=== PATIENT | female | born 1990 | race Caucasian/White ===

== ENCOUNTER 2017-05-23 00:39 | Inpatient (IN) | payer SELFPAY ==
[2017-05-22 22:27] VITALS: BMI 33.9
[2017-05-23] MEDS: Lactated Ringers 1,000 ML 50 ML IV ×3 (01:00→05:58)
[2017-05-23 01:13] LABS: Hematocrit 32.4 % (37-47); Mean Corpuscular Hgb 29.1 pg (27.0-32.0); Mean Corpuscular Volume 85.7 fL (81-99); Mean Platelet Vol. 9.6 fl (6.2-12.0); Platelet Count 230 K/mm3 (150-450); RBC Distribution Width CV 13.7 % (11.6-14.6); RBC Distribution Width SD 41.9 fl (35.1-43.9); Red Blood Count 3.78 M/mm3 (4.2-5.4); White Blood Count 11.9 K/mm3 (4.4-11.0)
[2017-05-23 01:15] LABS: Scan Indicated on CBC? Y/N NO
--- NOTE | 2017-05-23 02:20 | PCM.PN.BLA ---
Progress Note LABOR PROGRESS NOTE Declines AROM Sitting up in rocking chair NAD AVSS Off monitor A/P; 40 2/7 wk h/o long labor prior. GBS positive. ABX started for GBS prophylaxis Declines AROM for now. Continue monitor labor.
[2017-05-23] MEDS: Oxytocin 30 units/NS 500 ml 30 UNITS/500 ML IV.SOLN IV (04:35)
--- NOTE | 2017-05-23 07:57 | PCM.PN.BLA ---
Progress Note LABOR PROGRESS NOTE Comfortable w/ epidural AVSS Pitocin at 8 mIU/min EFM 120-130s with accels to 150-170s occasional variable UC q 2-4 min CX: 4 cm (as RN last note) 50/-3 but vtx well applied to cervix. AROM mod clear fluid A/P: 40 2/7 wk early labor with UCs. H/o 20 hr labor prior Pitocin started after epidural per pt request. Slow but continued progress. AROM Consider IUPC to better define adequacy of UCs by mVUs. continue labor.
[2017-05-23] MEDS: Oxytocin 30 units/NS 500 ml 30 UNITS/500 ML IV.SOLN 334 UNITS IV (10:55)
[2017-05-23] MEDS: Oxytocin 30 units/NS 500 ml 30 UNITS/500 ML IV.SOLN 167 UNITS IV (11:25)
[2017-05-23] MEDS: Lactated Ringers 1,000 ML 15 ML IV (12:25)
[2017-05-23 15:14] VITALS: BP 112/72; PULSE 76; RESP 18; TEMP 37.3; O2SAT 97
--- NOTE | 2017-05-23 17:00 | PCM.OB.VAG ---
- Problem List (1) (spontaneous vaginal delivery) Status: Acute Vaginal Delivery Maternal Presentation: - - Latent labor Method of Induction: - - Pitocin and amniotomy for augmentation Rupture of Membrane time: 0754 05/23/17 Amniotic Fluid Description: Clear Final ELSIE: 05/21/17 Final ELSIE Source: US <20 weeks Gestational age: 40 Weeks and 2 Days Date of Procedure: 05/23/17 Pre-Operative Diagnosis: 40 2/7wga, labor Post-Operative Diagnosis: 40 2/7wga, labor Surgery/ Procedure Performed: Spontaneous Vaginal Delivery Type of Anesthesia: Epidural Description of Procedure: FD/+3 and pushed to deliver a vigorous male in direct OA. The infant was placed on the maternal abdomen and further attended by nursery personnel. The cord was doubly clamped and cut at approximately 3 minutes of life. Cord blood was obtained. The placenta delivered spontaneously and appeared intact on inspection. An intrauterine exam was performed with few small clots extracted. The fundus was firm. A first degree perineal laceration was repaired with 3-0 Vicryl Rapide with excellent hemostasis. Presentation: Vertex Placental Delivery Description: Spontaneous Placenta Disposition: [facility] Cord Vessel Description: 3 Vessels Nuchal Cord Compression: Without compression Cord Entanglement: None Estimated Blood Loss: 200 Infant A gender: Male (1 minute): 8 (5 minute): 9 Episiotomy Description: None Laceration: Midline, Perineal Extension/lac, 1st degree Medications given after delivery: IV Pitocin Complications: None
[2017-05-23 17:16] VITALS: BP 116/75; PULSE 79; RESP 16; TEMP 36.8; O2SAT 96
[2017-05-23 19:40] VITALS: BP 108/65; PULSE 84; RESP 16; TEMP 37.1
[2017-05-23 23:34] VITALS: BP 111/71; PULSE 74; RESP 16; TEMP 36.8
[2017-05-24] MEDS: Ibuprofen 600 MG Tablet PO ×4 (01:14→22:46)
[2017-05-24 04:25] VITALS: BP 108/58; PULSE 68; RESP 16; TEMP 36.6
[2017-05-24] MEDS: Levothyroxine 150 MCG Tablet PO (05:33)
[2017-05-24 08:10] VITALS: BP 115/68; PULSE 84; RESP 16; TEMP 36.6; O2SAT 96
--- NOTE | 2017-05-24 08:36 | PCM.PN.OB ---
Subjective: PPD#1 Doing well. Bottle feeding. Considering going home today later in pm. Male and planned circumcision. OK with staying until tomorrow if baby is not released until late Bleeding about as a period. Pain control adequate. - Physical Exam General: Alert, Oriented x3, Cooperative, No apparent distress HEENT: Atraumatic Neck: Supple Abdomen: Soft - Fundus firm NT at 2 cm inferior to umbilicus Neurological: Cranial nerves II-XII grossly intact Psych/Mental Status: Normal Affect Vital Signs Temp Pulse Resp BP Pulse Ox 97.9 F 84 16 115/68 96 05/24/17 08:10 05/24/17 08:10 05/24/17 08:10 05/24/17 08:10 05/24/17 08:10 Oxygen Delivery Method Room Air Weight: 90.2 kg Body Mass Index (BMI) 33.9 Intake and Output for Last 24 Hours 05/22/17 05/23/17 05/24/17 23:59 23:59 23:59 Intake Total 3725 / 3725 Output Total 3700 / 3700 Balance 25 / 25 Laboratory Tests Past 24 Hrs 05/23/17 13:55 Screen NEGATIVE Baby's Blood Type A POSITIVE Baby's LEVAR NEGATIVE Assessment/Plan PPD#1 Doing well. Possible dischg home today if baby is released, otherwise hold dischg until tomorrow. Continue care.
[2017-05-24] MEDS: Prenatal Vits Tablet 1 TABLET PO (12:30)
[2017-05-24 14:10] VITALS: BP 104/53; PULSE 78; RESP 18; TEMP 36.7; O2SAT 94
[2017-05-24 20:15] VITALS: BP 119/70; PULSE 72; RESP 18; TEMP 36.5; O2SAT 98
[2017-05-25 03:30] VITALS: BP 127/75; PULSE 69; RESP 18; TEMP 36.2; O2SAT 97
[2017-05-25] MEDS: Levothyroxine 150 MCG Tablet PO (06:28)
[2017-05-25] MEDS: Ibuprofen 600 MG Tablet PO (06:31)
[2017-05-25 07:46] VITALS: BP 110/66; PULSE 58; RESP 18; TEMP 37.1; O2SAT 96
--- NOTE | 2017-05-25 08:51 | PCM.PN.OB ---
Subjective: No complaints. Denies heavy lochia. No issue overnight. She looks forward to going home. Objective: AVSS - Physical Exam General: Alert, Oriented x3, Cooperative, No apparent distress HEENT: Atraumatic, Normocephalic Lungs: Clear to auscultation, Normal air movement Cardiovascular: Regular rate, Regular Rhythm Abdomen: Soft, Non Tender, Non-Distended, - - Fundus firm and nontender Extremities: No edema, No Calf Tenderness Neurological: Neuro grossly intact Psych/Mental Status: Normal Affect, Appropriate, Alert and oriented to time, place, person, mood and affect Vital Signs Temp Pulse Resp BP Pulse Ox 98.7 F 58 L 18 110/66 96 05/25/17 07:46 05/25/17 07:46 05/25/17 07:46 05/25/17 07:46 05/25/17 07:46 Oxygen Delivery Method Room Air Weight: 90.2 kg Body Mass Index (BMI) 33.9 Intake and Output for Last 24 Hours 05/23/17 05/24/17 05/25/17 23:59 23:59 23:59 Intake Total 3725 / 3725 Output Total 3700 / 3700 Balance Assessment/Plan 27yo PPD#2 s/p doing well. -A negative - A positive, pt s/p Rhogam -Rubella immune -Bottlefeeding -d/c home todday
--- NOTE | 2017-05-25 08:57 | DCINST_ITS ---
Discharge Diet: No Restrictions Discharge Activity: Return to Normal Activity, May Shower, May Take a Tub Bath May resume sexual activity in: 6 weeks Lifting Restrictions: 20 lb Call your doctor if your incision/area has: Continuous Slow Oozing, Sudden Increased Bleeding, Increased Pain/ Swelling, Increased Redness, Foul Smelling Discharge Call your doctor if you observe: Inability to urinate, Inability to have a bowel movement, Using more than one pad per hour, Shortness of breath, Chest pain, Calf discomfort, Uncontrolled pain Suture Line Care: Avoid Pulling/Pushing Cleanse incision/area with: Soap & Water Instructions: After a Vaginal Additional Instructions: If you experience any of the following, contact your healthcare provider. * Bleeding that soaks a pad every hour for 2 hours * Fever 100.4 or higher * Unrelieved incision or abdominal pain * Swelling, redness, discharge or bleeding from your incision or episiotomy site * Your incision begins to separate * Problems urinating (including inability to urinate or burning while urinating) . * Visual changes * Severe headache * Flu-like symptoms * Pain or redness in one of both of your breasts * Pain, warmth, tenderness or swelling in your legs, especially the calf area * Frequent nausea and vomiting * Symptoms of depression or anxiety If you experience any of the following, call 911 or go to the nearest Emergency Room. * Chest pain * Problems breathing * Seizure activity * Partial or complete paralysis of a body part, slurred speech, weakness or drooping of the face, or a sudden inability to walk or hold your balance Allergies/Adverse Reactions: Allergies acyclovir Allergy (Verified 11/06/14 21:53) Rash Medications to take at Discharge Vits [Prenatabs FA ] 1 tablet PO DAILY 03/06/17 Levothyroxine [Synthroid] 150 mcg PO DAILY 05/22/17 Ibuprofen 800 mg PO TID PRN #30 tab 05/25/17 Senna/Docusate Sodium [Senokot-S] 1 - 2 tablet PO DAILY PRN PRN tablet The following prescriptions were given: Ibuprofen 800 mg PO TID PRN #30 tab PRN Reason: Pain Please Follow Up With: Za Nino MD When: 6 weeks Primary Care Physician: Paulo Jackson MD [Primary Care Provider] -
--- NOTE | 2017-05-25 09:01 | OP.PCM_ITS ---
- Problem List (1) (spontaneous vaginal delivery) Status: Acute Vaginal Delivery Maternal Presentation: - - Latent labor Method of Induction: - - Pitocin and amniotomy for augmentation Rupture of Membrane time: 0754 05/23/17 Amniotic Fluid Description: Clear Final ELSIE: 05/21/17 Final ELSIE Source: US <20 weeks Gestational age: 40 Weeks and 2 Days Date of Procedure: 05/23/17 Pre-Operative Diagnosis: 40 2/7wga, labor Post-Operative Diagnosis: 40 2/7wga, labor Surgery/ Procedure Performed: Spontaneous Vaginal Delivery Type of Anesthesia: Epidural Description of Procedure: FD/+3 and pushed to deliver a vigorous male in direct OA. The infant was placed on the maternal abdomen and further attended by nursery personnel. The cord was doubly clamped and cut at approximately 3 minutes of life. Cord blood was obtained. The placenta delivered spontaneously and appeared intact on inspection. An intrauterine exam was performed with few small clots extracted. The fundus was firm. A first degree perineal laceration was repaired with 3- 0 Vicryl Rapide with excellent hemostasis. Presentation: Vertex Placental Delivery Description: Spontaneous Placenta Disposition: [facility] Cord Vessel Description: 3 Vessels Nuchal Cord Compression: Without compression Cord Entanglement: None Estimated Blood Loss: 200 A gender: Male (1 minute): 8 (5 minute): 9 Episiotomy Description: None Laceration: Midline, Perineal Extension/lac, 1st degree Medications given after delivery: IV Pitocin Complications: None
== END 2017-05-25 09:45 | disposition home or self-care (01) | DRG 775 ==
LOC: WPOUT 00:43
PROVIDERS: Obstetrics & Gynecology; Admitting Provider Obstetrics & Gynecology; Family Provider Family Medicine; PCP Family Medicine; Visit Provider Obstetrics & Gynecology
DX: O99.824 Streptococcus B carrier state complicating childbirth (principal); O70.0 First degree perineal laceration during delivery; Z87.59 Personal history of other complications of pregnancy, childbirth and the puerperium; Z37.0 Single live birth; Z3A.40 40 weeks gestation of pregnancy
CPT/HCPCS: 59025; 59050; 85027; 85461; 86850; 86900; 90384; 99218; J7120; G0378; J2790

== ENCOUNTER → 2018-09-19 11:25 | Outpatient (CLI) | payer OTHER, SELFPAY ==
[2017-05-22 22:27] VITALS: BMI 33.9
[2018-09-23 13:39] LABS: HPV Reflexed? NOT INDICATED
== END ==
PROVIDERS: Visit Provider Obstetrics & Gynecology
DX: Z12.4 Encounter for screening for malignant neoplasm of cervix (principal)
CPT/HCPCS: 88175; G0145

== ENCOUNTER → 2019-08-06 | Outpatient (CLI) | payer OTHER, SELFPAY ==
[2017-05-22 22:27] VITALS: BMI 33.9
[2019-08-06 18:05] LABS: Color, Urine Yellow (Yellow); Glucose, Dipstick Normal (Normal); Ketone-Dipstick Negative (Negative); Leukocyte Esterase-Dipstick 25 /ul (Negative); Nitrite-Dipstick Negative (Negative); Occult Blood-Urine Negative /ul (Negative); Protein-Dipstick Negative (Negative); Specific Gravity, Urine 1.005 (1.002-1.030); Urine Bilirubin Dipstick Negative (Negative); Urine Clarity Clear (Clear); Urine Urobilinogen Normal (Normal)
[2019-08-06 18:09] LABS: Absolute Lymphocyte Count 1.34 X10^3/uL (0.83-4.51); Absolute Neutrophil Count 6.1 X10^3/uL (2.0-7.7); Basophil# 0.03 X10^3/uL; Basophil% 0.4 % (0-1); Eosinophil# 0.03 X10^3/uL; Eosinophils% 0.4 % (0-5); Hematocrit 35.3 % (37-47); Hemoglobin 11.6 g/dL (12.0-15.0); Lymphocyte # 1.34 X10^3/ul (4.0); Lymphocyte % 16.8 % (19-41); Mean Corp Hgb Conc 32.9 g/dL (32-36); Mean Corpuscular Hgb 29.2 pg (27.0-32.0); Mean Corpuscular Volume 88.9 fL (81-99); Mean Platelet Vol. 9.9 fl (6.2-12.0); Monocyte# 0.44 X10^3/uL; Monocyte% 5.5 % (0-10); NRBC Flagged by Analyzer 0 % (0-5); Neutrophil % 76.4 % (47-70); Platelet Count 261 K/mm3 (150-450); RBC Distribution Width CV 13.8 % (11.6-14.6); Red Blood Count 3.97 M/mm3 (4.2-5.4)
[2019-08-06 18:23] LABS: Amphetamine Urine VISTA NEGATIVE (<1000 ng/mL); Barbiturate Urine VISTA NEGATIVE (< 200 ng/mL); Benzodiazepine Urine VISTA NEGATIVE (< 200 ng/mL); Cocaine Urine VISTA NEGATIVE (< 300 ng/mL); Ecstacy Urine VISTA NEGATIVE (< 500 ng/mL); Methadone Urine VISTA NEGATIVE (< 300 ng/mL); PCP Urine VISTA NEGATIVE (< 25 ng/mL); THC Urine VISTA NEGATIVE (< 50 ng/mL); Vista UDS pH Range 7
[2019-08-06 18:25] LABS: Thyroid Stim Hormone (TSH) 0.56 uIU/mL (0.358-3.74)
[2019-08-06 20:35] LABS: Chlamydia Trachomatis by PCR Negative (Negative); Neisserai gonorrhoeae by PCR Negative (Negative); Probe Check PASS; Sample Adequacy Control PASS; Specimen Processing Control PASS
[2019-08-07 08:38] LABS: HIV - WCH Non-Reactive (Nonreactive); Hepatitis B Surface Antigen Non-Reactive (Nonreactive); Hepatitis C Antibody Non-Reactive (Nonreactive); Rubella IgG 171.2 IU/mL
[2019-08-07 23:59] LABS: Prenatal RPR NONREACTIVE (NONREACTIVE)
== END | disposition home or self-care (01) ==
PROVIDERS: Referring Provider Obstetrics & Gynecology; Visit Provider Obstetrics & Gynecology
DX: Z34.82 Encounter for supervision of other normal pregnancy, second trimester (principal); Z11.2 Encounter for screening for other bacterial diseases
CPT/HCPCS: 80307; 81002; 84443; 85025; 86703; 86762; 86803; 87340; 87491; 87591

== ENCOUNTER → 2019-10-02 10:12 | Outpatient (CLI) | payer OTHER, SELFPAY ==
[2017-05-22 22:27] VITALS: BMI 33.9
[2019-10-02 11:07] LABS: Hematocrit 33.1 % (37-47); Mean Corp Hgb Conc 33.2 g/dL (32-36); Mean Corpuscular Hgb 29.6 pg (27.0-32.0); Mean Corpuscular Volume 89.2 fL (81-99); Mean Platelet Vol. 9.2 fl (6.2-12.0); Platelet Count 242 K/mm3 (150-450); RBC Distribution Width CV 13.1 % (11.6-14.6); RBC Distribution Width SD 42.4 fl (35.1-43.9); Red Blood Count 3.71 M/mm3 (4.2-5.4)
[2019-10-02 11:36] LABS: Glucose Challenge Gest 1H 50g 115 mg/dL (70-140)
== END ==
PROVIDERS: Visit Provider Obstetrics & Gynecology
DX: O36.0930 Maternal care for other rhesus isoimmunization, third trimester, not applicable or unspecified (principal)
CPT/HCPCS: 36415; 82950; 85027; 86850

== ENCOUNTER → 2019-12-03 | Outpatient (CLI) | payer OTHER, SELFPAY ==
[2017-05-22 22:27] VITALS: BMI 33.9
== END | disposition home or self-care (01) ==
LOC: LABSPEC 14:13
PROVIDERS: Visit Provider Obstetrics & Gynecology
DX: Z36.85 Encounter for antenatal screening for Streptococcus B (principal)
CPT/HCPCS: 87081

== ENCOUNTER 2019-12-15 18:30 | Outpatient (CLI) | payer SELFPAY, OTHER ==
[2017-05-22 22:27] VITALS: BMI 33.9
[2019-12-15 18:37] VITALS: BP 110/61; PULSE 96; O2SAT 97
[2019-12-15 18:47] VITALS: TEMP 37.4
[2019-12-15 18:48] VITALS: BP 110/61; PULSE 93
[2019-12-15 18:53] VITALS: BMI 34.9
[2019-12-15 20:36] VITALS: BP 121/72; PULSE 84; PULSE 92; TEMP 36; O2SAT 99
--- NOTE | 2019-12-15 22:00 | OB.TRI.HP_ITS ---
<Lizz Merrill - Last Filed: 12/16/19 08:00> - Problem List (1) 38 weeks gestation of Status: Acute (2) Labor, false ([place]), antepartum Status: Acute History of Present Illness Date of Service: 12/15/19 Was patient seen by the physician?: No Reason For Visit: R/O LABOR Date of Service: 12/15/19 Final ELSIE: 12/24/19 Final ELSIE Source: US <20 weeks Gestational age: 38 Weeks and 6 Days History of Present Illness: Reports UC started early this AM and became more regular at 1630 Q3-5m apart. On the way here UC started to space out. Allergies acyclovir Allergy (Verified 12/15/19 18:55) Rash Review of Systems Constitutional: Denies: Chills, Fever, Weight Change HEENT: Denies: Head Aches, Sinus Congestion, Sinus Drainage Cardiovascular: Denies: Chest Pain, Palpitations Respiratory: Denies: Cough, Shortness of breath at rest, Sputum production Gastrointestinal: Denies: Abdominal Pain, Nausea, Vomiting Genitourinary: Denies: Dysuria Musculoskeletal: Denies: Joint Pain, Joint Tenderness Skin: Denies: Rash, Wounds Neurological: Denies: Numbness, Tingling, Focal weakness Psychiatric: Denies: Anxiety, Depression, Homicidal Ideations, Suicidal Ideations Hematologic/ Lymphatic: Denies: Easy Bruising, Easy Bleeding Physical Exam Vitals: Vital Signs Temp Pulse BP Pulse Ox 96.8 F L 92 121/72 H 99 12/15/19 20:36 12/15/19 20:36 12/15/19 20:36 12/15/19 20:36 General: Alert, Oriented x3, No apparent distress HEENT: Atraumatic, Normocephalic. 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 Negative for: Vulvar lesions Estimated gestational size: Appropriate for gestational size Presentation: Cephalic Cervix Dilation (cm): 3 Station: -2 Effacement (%): 50 NST - FHR Rate Baby A Baseline: 130 Variability:: Moderate Accelerations:: 15 x 15 Decelerations:: None NST Reactive:: Yes FHR Category:: Category I Uterine Activity:: Q1.5-8m, irregular Impression/Plan A/P: at 38w5d here to rule out labor UC now 1.5-8m, irregular NST Category I SVE unchanged over the course of two hours, still 3/50/-2 Rating contractions a 5/10 on the pain scale Offered to keep for observation and pain management, but patient would like to discharge home and await active labor Educated on hydration, rest and Tylenol at home To return if contractions become regular or stronger To follow up in OB office Dr. Seth Armendariz, attending updated on patients wishes and POC <Brenda Armendariz - Last Filed: 12/16/19 09:30> Physical Exam Vitals: Vital Signs Temp Pulse BP Pulse Ox 96.8 F L 92 121/72 H 99 12/15/19 20:36 12/15/19 20:36 12/15/19 20:36 12/15/19 20:36 Impression/Plan Agreed with above. status reassuring, discharge home with precautions.
== END 2019-12-15 21:35 | disposition home or self-care (01) ==
LOC: WPOUT 18:33 → WP 18:33
PROVIDERS: Visit Provider Obstetrics & Gynecology
DX: O47.1 False labor at or after 37 completed weeks of gestation (principal); Z3A.38 38 weeks gestation of pregnancy
CPT/HCPCS: 59025; 59050; 99218; G0378

== ENCOUNTER 2019-12-18 10:50 | Inpatient (IN) | payer SELFPAY, OTHER ==
[2017-05-22 22:27] VITALS: BMI 33.9
[2019-12-18] VITALS (43 sets, daily range): BP systolic 101–125; BP diastolic 49–75; PULSE 75–111; TEMP 36.7–37.4; O2SAT 95–100; BMI 34.6
--- NOTE | 2019-12-18 07:57 | OB.TRI.NOTE ---
- Problem List (1) 39 weeks gestation of Status: Acute (2) Uterine contractions during Status: Acute History of Present Illness Date of Service: 12/18/19 Was patient seen by the physician?: Yes Reason For Visit: R/O LABOR Date of Service: 12/18/19 Final ELSIE: 12/24/19 Final ELSIE Source: US <20 weeks Gestational age: 39 Weeks and 1 Days History of Present Illness: Reports UC began at midnight last evening. They were very regular, but now irregular. Rating them a 5/10 on the pain scale. Allergies acyclovir Allergy (Verified 12/18/19 06:23) Rash Review of Systems Constitutional: Denies: Chills, Fever, Weight Change HEENT: Denies: Head Aches, Sinus Congestion, Sinus Drainage Cardiovascular: Denies: Chest Pain, Palpitations Respiratory: Denies: Cough, Shortness of breath at rest, Sputum production Gastrointestinal: Denies: Abdominal Pain, Nausea, Vomiting Genitourinary: Denies: Dysuria Musculoskeletal: Denies: Joint Pain, Joint Tenderness Skin: Denies: Rash, Wounds Neurological: Denies: Numbness, Tingling, Focal weakness Psychiatric: Denies: Anxiety, Depression, Homicidal Ideations, Suicidal Ideations Hematologic/ Lymphatic: Denies: Easy Bruising, Easy Bleeding Physical Exam Vitals: Vital Signs Temp Pulse BP Pulse Ox 98.6 F 102 H 109/59 L 95 12/18/19 07:16 12/18/19 07:15 12/18/19 07:15 12/18/19 06:06 General: Alert, Oriented x3, No apparent distress HEENT: Atraumatic, Normocephalic. 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 Negative for: Vulvar lesions Estimated gestational size: Appropriate for gestational size Presentation: Cephalic Cervix Dilation (cm): 4 Station: -2 Effacement (%): 70 NST - FHR Rate Baby A Baseline: 130 Variability:: Moderate Accelerations:: 15 x 15 Decelerations:: None NST Reactive:: Yes FHR Category:: Category I Uterine Activity:: Q3-8m Impression/Plan A/P: at 39.1 weeks with reports of UC since 0000 On arrival at 0615 SVE by RN - At 0800 SVE by CNM with ballotable head UC now more irregular at 3-8m apart Will recheck SVE in 2 hours Encouraged being up out of the bed on the birthing ball, walking, etc to help engage head Discussed if she is not making any further change in 2 hours she could go or offer to stay with AROM Will reassess and update POC at 1000 Attending today: Dr. Nino, update given
--- NOTE | 2019-12-18 08:30 | OB.TRI.NOTE ---
- Problem List (1) 39 weeks gestation of Status: Acute History of Present Illness Date of Service: 12/18/19 Was patient seen by the physician?: Yes Reason For Visit: contractions Date of Service: 12/18/19 Final ELSIE: 12/24/19 Final ELSIE Source: US <20 weeks Gestational age: 39 Weeks and 1 Days History of Present Illness: 29yo at 39 1/7wga with c/o painful contractions. She changed from 3 to 4cm dilation between different examiners this morning. She was offered augmentation however declined and desires to continue observation. Good movement. Allergies acyclovir Allergy (Verified 12/18/19 11:55) Rash Laboratory Studies: Laboratory Tests 12/18/19 12/18/19 Range/Units 11:40 11:40 WBC 10.7 (4.4-11.0) K/mm3 RBC 3.62 L (4.2-5.4) M/mm3 Hgb 10.5 L (12.0-15.0) g/dL Hct 31.3 L (37-47) % MCV 86.5 (81-99) fL MCH 29.0 (27.0-32.0) pg MCHC 33.5 (32-36) g/dL RDW Std Deviation 44.9 H (35.1-43.9) fl RDW Coeff of Daisy 14.3 (11.6-14.6) % Plt Count 178 (150-450) K/mm3 MPV 9.5 (6.2-12.0) fl Immature Gran % (Auto) 1.000 H (0.0-0.9) % Neut % (Auto) 77.1 H (47-70) % Lymph % (Auto) 15.2 L (19-41) % [place] % (Auto) 5.9 (0-10) % Eos % (Auto) 0.5 (0-5) % Baso % (Auto) 0.3 (0-1) % Absolute Neuts (auto) 8.3 H (2.0-7.7) X10^3/uL Absolute Lymphs (auto) 1.63 (0.83-4.51) X10^3/uL Nucleated RBC % 0 (0-5) % Blood Type A NEGATIVE Antibody Screen NEGATIVE Physical Exam Vitals: Vital Signs Temp Pulse BP Pulse Ox 98.0 F 93 106/60 98 12/18/19 20:18 12/18/19 20:32 12/18/19 20:32 12/18/19 20:18 General: Alert, Oriented x3, Cooperative, No apparent distress HEENT: Atraumatic, Normocephalic Estimated gestational size: Appropriate for gestational size Presentation: Cephalic Cervix Dilation (cm): 4 Station: -3 Effacement (%): 60 - cephalic NST - FHR Rate Baby A Baseline: 130 Variability:: Moderate Accelerations:: 15 x 15 Decelerations:: None NST Reactive:: Yes FHR Category:: Category I Uterine Activity:: 2/10 min Impression/Plan 29yo in latent labor, Cat I FHR -Pt agreeable to membranes stripping for augmentation. -Will plan repeat exam approximately 10am and reassess for admission. -Maternal and statuses reassuring
[2019-12-18] MEDS: Lactated Ringers 1,000 ML 50 ML IV (11:40)
--- NOTE | 2019-12-18 11:45 | PCM.HP.OB ---
- Problem List (1) 39 weeks gestation of Status: Acute History Date of Admission: 12/18/19 Final ELSIE: 12/24/19 Final ELSIE Source: US <20 weeks Gestational age: 39 Weeks and 1 Days History of this : This is a 29 year-old, G [], P [], at 39 weeks gestational age. Medical History: Medical History (Last Updated 12/18/19 @ 20:[address] Za Boo MD) Hypothyroidism E03.9 Surgical History: Surgical History (Last Updated 12/18/19 @ 20:[address] Za Boo MD) Hx of appendectomy Z90.49 2014 - Dr. Webber, [facility] Allergies acyclovir Allergy (Verified 12/18/19 11:55) Rash Home Medications: Home Medications Vits [Prenatabs FA ] 1 tablet PO DAILY 03/06/17 Levothyroxine [Synthroid] 125 mcg PO DAILY 05/22/17 Eprim/Linoleic/Gamolenic/Cranb [[place] Oil Softgel] 1 ea PO DAILY 12/15/19 Smoking Status: Never smoker Alcohol: None Number of Fetus(es): 1 NST - FHR Rate Baby A Baseline: 130 Variability:: Moderate Accelerations:: 15 x 15 Decelerations:: None NST Reactive:: Yes FHR Category:: Category I Uterine Activity:: 4/10 History Past Pregnancies: Past Pregnancies Delivery Date Name GA/ Weeks Outcome Route Wt Sex Labor Length Anesthesia Delivery Location Provider FOB 06/2014 Huma Mortensen 42 IOL 8lb8oz F 20 Epidural [facility] Thad Blackmon 05/2017 [place] 40 8lb8oz M 8 Epidural [facility] Raman Blackmon Labs: Mom's Problem List Problem Status Onset Code 39 weeks gestation of Acute Z3A.39 Uterine contractions during Acute O62.2 Mom's Labs & Results 12/18/19 12/18/19 11:40 11:40 WBC 10.7 RBC 3.62 L Hgb 10.5 L Hct 31.3 L MCV 86.5 MCH 29.0 MCHC 33.5 RDW Std Deviation 44.9 H RDW Coeff of Daisy 14.3 Plt Count 178 MPV 9.5 Immature Gran % (Auto) 1.000 H Neut % (Auto) 77.1 H Lymph % (Auto) 15.2 L [place] % (Auto) 5.9 Eos % (Auto) 0.5 Baso % (Auto) 0.3 Absolute Neuts (auto) 8.3 H Absolute Lymphs (auto) 1.63 Nucleated RBC % 0 Blood Type A NEGATIVE Antibody Screen NEGATIVE Course Did the patient receive Yes care? Labs Blood Type: A RH: NEGATIVE RPR/VDRL/Syphilis Nonreactive Rubella status Immune HbSAg Negative Date Done: 08/06/19 Chlamydia Negative Gonorrhea Negative HIV/AIDS Non-Reactive Group B Strep: Negative Current Obstetrical History Gestational Diabetes No Incompetent Cervix No Infertility No IUGR No Macrosomia No Hypertension/Pre-eclampsia No Placenta Previa/Abruption No PTL/PROM No Uterine anomaly No Oligohydramnios No Polyhydramnios No Multiple gestation No Past Medical History Asthma No Diabetes No Hypertension No Heart disease No Mitral valve prolapse No Neurologic/Seizure disorder/ No Migraines Kidney disease No Liver disease No Varicosities No Clotting disorders/Hx of DVT No Thyroid Dysfunction Yes: hypothyroid Other medical diseases No Psychiatric disorders No Major trauma No Abnormal PAP smear No Sleep apnea No Mammogram in the last 2 years No Social History Marital Status: Alleged father Neymar Hx Smoking No Smoking Status Never smoker Expected Infant Delivery Method: Spontaneous Vaginal Number of Visits: 7 Physical Exam Vitals: Vital Signs Temp Pulse BP Pulse Ox 98.0 F 93 106/60 98 12/18/19 20:18 12/18/19 20:32 12/18/19 20:32 12/18/19 20:18 General: Alert, Oriented x3, Cooperative, No apparent distress HEENT: Atraumatic, Normocephalic Cardiovascular: Regular rate, Regular Rhythm, Normal S1, Normal S2 Lungs: Normal air movement Abdomen: Soft, Non Tender, Gravid Neurological: Neuro grossly intact Estimated gestational size: Appropriate for gestational size Presentation: Cephalic Assessment/Plan All Active Problems (Last Updated 12/18/19 @ 20:[address] Za Boo MD) (spontaneous vaginal delivery) (Acute) 39 weeks gestation of (Acute) Uterine contractions during (Acute) This is a 29 year-old, G [3], P [2], at 39 1/7 weeks gestational age in labor, Cat I FHR -Epidural per patient request -Maternal and statuses reassuring
[2019-12-18 11:52] LABS: Absolute Lymphocyte Count 1.63 X10^3/uL (0.83-4.51); Absolute Neutrophil Count 8.3 X10^3/uL (2.0-7.7); Basophil# 0.03 X10^3/uL; Basophil% 0.3 % (0-1); Eosinophil# 0.05 X10^3/uL; Eosinophils% 0.5 % (0-5); Hematocrit 31.3 % (37-47); Hemoglobin 10.5 g/dL (12.0-15.0); Lymphocyte # 1.63 X10^3/ul (4.0); Lymphocyte % 15.2 % (19-41); Mean Corp Hgb Conc 33.5 g/dL (32-36); Mean Corpuscular Volume 86.5 fL (81-99); Mean Platelet Vol. 9.5 fl (6.2-12.0); Monocyte# 0.63 X10^3/uL; Monocyte% 5.9 % (0-10); NRBC Flagged by Analyzer 0 % (0-5); Neutrophil # 8.29 X10^3/uL (2.7-7.7); Neutrophil % 77.1 % (47-70); Platelet Count 178 K/mm3 (150-450); RBC Distribution Width CV 14.3 % (11.6-14.6); RBC Distribution Width SD 44.9 fl (35.1-43.9); Red Blood Count 3.62 M/mm3 (4.2-5.4); White Blood Count 10.7 K/mm3 (4.4-11.0)
[2019-12-18] MEDS: Lactated Ringers 500 ML 999 ML IV (12:10)
[2019-12-18] MEDS: fentaNYL-bupivacaine (epidural) 100 ML BAG EPIDURAL ×2 (13:23→17:56)
--- NOTE | 2019-12-18 15:35 | NURSING ---
charting by student reviewed and agree. charting used for educational and learning purposes.
[2019-12-18] MEDS: Lactated Ringers 1,000 ML 200 ML IV (17:40)
[2019-12-18] MEDS: Oxytocin 30 units/NS 500 ml 30 UNITS/500 ML IV.SOLN IV (18:38)
[2019-12-18] MEDS: Oxytocin 30 units/NS 500 ml 30 UNITS/500 ML IV.SOLN 334 UNITS IV (20:07)
--- NOTE | 2019-12-18 20:25 | PCM.OPRPT ---
Problem List (1) 39 weeks gestation of Status: Acute (2) (spontaneous vaginal delivery) Status: Acute Vaginal Delivery Maternal Presentation: - - Latent labor Method of Induction: - - Pitocin and amniotomy for augmentation Amniotic Membrane Rupture Type: Artificial Rupture of Membrane time: 12/18/19 1752h Amniotic Fluid Description: Clear Final ELSIE: 12/24/19 Final ELSIE Source: US <20 weeks Gestational age: 39 Weeks and 1 Days Date of Procedure: 12/18/19 Pre-Operative Diagnosis: 39 1/7wga, labor Post-Operative Diagnosis: 39 1/7wga, labor Surgery/ Procedure Performed: Spontaneous Vaginal Delivery Anesthesiologist: Lashonda Orantes Type of Anesthesia: Epidural Description of Procedure: Patient was FD/+ 2 on my arrival and pushed to deliver a vigorous male over an intact perineum over three contractions. Infant mouth and nares were bulb suctioned at the perineum and the infant placed on the maternal abdomen and further attended by nursery personnel. The cord was doubly clamped and cut at approximately 5 minutes of life. Cord blood was obtained. The placenta delivered spontaneously and appeared intact on inspection. Sponge counts correct x 2. Presentation: SAMMY Placental Delivery Description: Spontaneous Placenta Disposition: [facility] Cord Vessel Description: 3 Vessels Nuchal Cord Compression: Without compression Cord Entanglement: None Drain: Erwin to straight drain Estimated Blood Loss: 150 ml A gender: Male (1 minute): 8 (5 minute): 8 Episiotomy Description: None Laceration: None Medications given after delivery: IV Pitocin Complications: None
[2019-12-18] MEDS: 0.9% Saline Lock 10 ML Syringe IV (22:37)
[2019-12-19 00:23] VITALS: BP 113/60; PULSE 98; RESP 18; TEMP 36.4; O2SAT 97
--- NOTE | 2019-12-19 00:47 | NURSING ---
Report received from Amanda CLEANING, taking over pt and care at this time.
[2019-12-19 04:15] VITALS: BP 103/49; PULSE 87; RESP 16; TEMP 36.3; O2SAT 95
[2019-12-19] MEDS: Levothyroxine 125 MCG Tablet PO (06:34)
--- NOTE | 2019-12-19 06:53 | DCINST_ITS ---
Discharge Diet: No Restrictions Discharge Activity: Return to Normal Activity, May Shower, May Take a Tub Bath May resume sexual activity in: 4-6 weeks Lifting Restrictions: 20lb Additional Instructions: If you experience any of the following, contact your healthcare provider. * Bleeding that soaks a pad every hour for 2 hours * Fever 100.4 or higher * Unrelieved incision or abdominal pain * Swelling, redness, discharge or bleeding from your incision or episiotomy site * Your incision begins to separate * Problems urinating (including inability to urinate or burning while urinating). * Visual changes * Severe headache * Flu-like symptoms * Pain or redness in one of both of your breasts * Pain, warmth, tenderness or swelling in your legs, especially the calf area * Frequent nausea and vomiting * Symptoms of depression or anxiety If you experience any of the following, call 911 or go to the nearest Emergency Room. * Chest pain * Problems breathing * Seizure activity * Partial or complete paralysis of a body part, slurred speech, weakness or drooping of the face, or a sudden inability to walk or hold your balance Allergies/Adverse Reactions: Allergies acyclovir Allergy (Verified 12/18/19 11:55) Rash Medications to take at Discharge Vits [Prenatabs FA ] 1 tablet PO DAILY 03/06/17 Levothyroxine [Synthroid] 125 mcg PO DAILY 05/22/17 Ibuprofen [Motrin] 600 mg PO Q8H PRN #30 tab 12/19/19 The following prescriptions were given: Ibuprofen [Motrin] 600 mg PO Q8H PRN #30 tab PRN Reason: Pain Score 1-10 Transmission Status: Pending to [facility]/pharmacy #[id number] Please Follow Up With: Mica When: 6 weeks Test Results: Test results from this visit will be discussed in further detail at your follow- up appointment, if applicable.
--- NOTE | 2019-12-19 06:53 | PCM.DCVAG ---
Discharge Diet: No Restrictions Discharge Activity: Return to Normal Activity, May Shower, May Take a Tub Bath May resume sexual activity in: 4-6 weeks Lifting Restrictions: 20lb Additional Instructions: If you experience any of the following, contact your healthcare provider. Bleeding that soaks a pad every hour for 2 hours Fever 100.4 or higher Unrelieved incision or abdominal pain Swelling, redness, discharge or bleeding from your incision or episiotomy site Your incision begins to separate Problems urinating (including inability to urinate or burning while urinating). Visual changes Severe headache Flu-like symptoms Pain or redness in one of both of your breasts Pain, warmth, tenderness or swelling in your legs, especially the calf area Frequent nausea and vomiting Symptoms of depression or anxiety If you experience any of the following, call 911 or go to the nearest Emergency Room. Chest pain Problems breathing Seizure activity Partial or complete paralysis of a body part, slurred speech, weakness or drooping of the face, or a sudden inability to walk or hold your balance Allergies/Adverse Reactions: Allergies acyclovir Allergy (Verified 12/18/19 11:55) Rash Medications to take at Discharge Vits [Prenatabs FA ] 1 tablet PO DAILY 03/06/17 Levothyroxine [Synthroid] 125 mcg PO DAILY 05/22/17 Ibuprofen [Motrin] 600 mg PO Q8H PRN #30 tab 12/19/19 The following prescriptions were given: Ibuprofen [Motrin] 600 mg PO Q8H PRN #30 tab PRN Reason: Pain Score 1-10/10 Transmission Status: Pending to [facility]/pharmacy #[id number] Please Follow Up With: Mica When: 6 weeks Test Results: Test results from this visit will be discussed in further detail at your follow-up appointment, if applicable.
--- NOTE | 2019-12-19 06:55 | PCM.PN.OB ---
Patient Problems: Active and Suspected Problems (Last Updated 12/18/19 @ 20:[address] Za Boo MD) (spontaneous vaginal delivery) (Acute) 39 weeks gestation of (Acute) Subjective: Denies pain. Charlene feels well. She is out of bed and ambulating, voiding without difficulty. Denies heavy lochia, swelling. She feels her varicose veins already improved. She is and infant latching well. Objective: AVSS - Physical Exam Vitals/I&O's: Vital Signs Temp Pulse Resp BP Pulse Ox 97.4 F L 87 16 103/49 L 95 12/19/19 04:15 12/19/19 04:15 12/19/19 04:15 12/19/19 04:15 12/19/19 04:15 Oxygen Delivery Method Room Air Weight: 88.6 kg Body Mass Index (BMI) 34.6 Intake and Output for Last 24 Hours 12/17/19 12/18/19 12/19/19 23:59 23:59 23:59 Intake Total 3994.50 / 3994.50 Output Total 1600 / 1600 600 / 600 Balance 2394.50 / 2394.50 -600 / -600 General: Alert, Oriented x3, Cooperative, No apparent distress HEENT: Atraumatic, Normocephalic Lungs: Clear to auscultation, Normal air movement Cardiovascular: Regular rate, Regular Rhythm, Normal S1, Normal S2 Abdomen: Soft, Non Tender, Non-Distended, - - Fundus firm and nontender at 1 FW above umbilicus Extremities: No edema, No Calf Tenderness, - - LE varicosities less dilated from prior Neurological: Neuro grossly intact Psych/Mental Status: Normal Affect, Appropriate, Alert and oriented to time, place, person, mood and affect Laboratory Results 12/18/19 11:40: WBC 10.7, RBC 3.62 L, Hgb 10.5 L, Hct 31.3 L, MCV 86.5, MCH 29.0, MCHC 33.5, RDW Std Deviation 44.9 H, RDW Coeff of Daisy 14.3, Plt Count 178, MPV 9.5, Immature Gran % (Auto) 1.000 H, Neut % (Auto) 77.1 H, Lymph % (Auto) 15.2 L, [place] % (Auto) 5.9, Eos % (Auto) 0.5, Baso % (Auto) 0.3, Absolute Neuts (auto) 8.3 H, Absolute Lymphs (auto) 1.63, Nucleated RBC % 0 12/18/19 11:40: Blood Type A NEGATIVE, Antibody Screen NEGATIVE 12/18/19 23:15: Screen NEGATIVE, Baby's Blood Type A POSITIVE, Baby's LEVAR NEGATIVE Current Medications Acetaminophen (Tylenol) 325 - 650 mg PO Q4H PRN PRN PRN Reason: Pain Score 1-3/10 Bisacodyl (Dulcolax) 10 mg RECTAL UD PRN PRN Reason: If no BM Dibucaine (Dibucaine) 1 applic TOPICAL TID PRN PRN; Protocol PRN Reason: Discomfort Hydrocortisone (Hytone) 1 applic TOPICAL TID PRN PRN; Protocol PRN Reason: Discomfort Ibuprofen (Motrin) 600 mg PO Q6H PRN PRN PRN Reason: Pain Score 1-3/10 Levothyroxine Sodium (Synthroid) 125 mcg PO DAILY@0600 [facility] Last Admin: 12/19/19 06:34 Dose: 125 mcg Documented by: Methylergonovine Maleate (Methergine) 0.2 mg IM X1 PRN PRN Reason: Excess bleeding/uterine atony Ondansetron HCl (Zofran) 4 mg IV Q4H PRN PRN PRN Reason: NAUSEA Multivit/Folic Acid/Iron (Prenatabs Fa) 1 tablet PO DAILY [facility] Senna/Docusate Sodium (Senokot-S, Cailin-Colace) 1 - 2 tablet PO DAILY PRN PRN PRN Reason: Constipation Simethicone (Mylicon) 80 mg PO PCHS PRN PRN Reason: Indigestion/Stomach pain Sodium Chloride () 5 - 15 ml IV UD PRN PRN Reason: SALINE FLUSH Last Admin: 12/18/19 22:37 Dose: 10 ml Documented by: Medical Necessity - Tobacco Use Smoking Status: Never smoker Assessment/Plan All Active Problems (Last Updated 12/18/19 @ 20:[address] Za Boo MD) (spontaneous vaginal delivery) (Acute) 39 weeks gestation of (Acute) Uterine contractions during (Acute) This is a 29 year-old, G [3], P [3], PPD#1 s/p doing well. -Rh neg - infant A pos - Rhogam - -Routine care -Anticipate discharge tomorrow
[2019-12-19 08:45] VITALS: BP 110/60; PULSE 79; RESP 14; TEMP 36.1
[2019-12-19] MEDS: Prenatal Vits Tablet 1 TABLET PO (10:31)
[2019-12-19] MEDS: Acetaminophen 325 MG Tablet PO (10:40)
[2019-12-19 12:00] VITALS: BP 112/68; PULSE 67; RESP 14; TEMP 36.5
[2019-12-19 17:00] VITALS: BP 102/56; PULSE 76; RESP 12; TEMP 36.7
--- NOTE | 2019-12-19 17:10 | CASEMGMT ---
Social Work Labor and Delivery Unit Consult received for PHQ9 trigger. Score is a 2. Will plan to patient/mother of baby (MOB) on 12.20.2019 for assessment and provision of resources. -EDILBERTO Jimenez, [employer]
[2019-12-19 19:59] VITALS: BP 117/60; PULSE 81; RESP 16; TEMP 36.4
[2019-12-20 01:57] VITALS: BP 108/70; PULSE 75; RESP 14; TEMP 36.4
[2019-12-20] MEDS: Levothyroxine 125 MCG Tablet PO (05:18)
[2019-12-20] MEDS: Ibuprofen 600 MG Tablet PO (07:03)
--- NOTE | 2019-12-20 08:16 | PCM.PN.OB ---
Patient Problems: Active and Suspected Problems (Last Updated 12/18/19 @ 20:[address] Za Boo MD) (spontaneous vaginal delivery) (Acute) 39 weeks gestation of (Acute) Subjective: Objective: No overnight complaints. Denies vaginal bleeding, nausea vomiting, chest pain. Normal lochia. Pain well controlled - Physical Exam Vitals/I&O's: Vital Signs Temp Pulse Resp BP Pulse Ox 97.5 F L 75 14 108/70 95 12/20/19 01:57 12/20/19 01:57 12/20/19 01:57 12/20/19 01:57 12/19/19 04:15 Oxygen Delivery Method Room Air Weight: 195 lb 5.273 oz Body Mass Index (BMI) 34.6 Intake and Output for Last 24 Hours 12/18/19 12/19/19 12/20/19 23:59 23:59 23:59 Intake Total 3994.50 / 3994.50 Output Total 1600 / 1600 1100 / 1100 Balance 2394.50 / 2394.50 -1100 / -1100 General: Alert, Oriented x3, Cooperative, No apparent distress HEENT: Atraumatic, Normocephalic Oral: Moist Mucosa Neck: Supple Abdomen: Soft, Non Tender, Non-Distended, Gravid - firm at umbilicus Psych/Mental Status: Normal Affect, Appropriate, Alert and oriented to time, place, person, mood and affect Current Medications Acetaminophen (Tylenol) 325 - 650 mg PO Q4H PRN PRN PRN Reason: Pain Score 1-3/10 Last Admin: 12/19/19 10:40 Dose: 650 mg Documented by: Bisacodyl (Dulcolax) 10 mg RECTAL UD PRN PRN Reason: If no BM Dibucaine (Dibucaine) 1 applic TOPICAL TID PRN PRN; Protocol PRN Reason: Discomfort Hydrocortisone (Hytone) 1 applic TOPICAL TID PRN PRN; Protocol PRN Reason: Discomfort Ibuprofen (Motrin) 600 mg PO Q6H PRN PRN PRN Reason: Pain Score 1-3/10 Last Admin: 12/20/19 07:03 Dose: 600 mg Documented by: Levothyroxine Sodium (Synthroid) 125 mcg PO DAILY@0600 [facility] Last Admin: 12/20/19 05:18 Dose: 125 mcg Documented by: Methylergonovine Maleate (Methergine) 0.2 mg IM X1 PRN PRN Reason: Excess bleeding/uterine atony Ondansetron HCl (Zofran) 4 mg IV Q4H PRN PRN PRN Reason: NAUSEA Multivit/Folic Acid/Iron (Prenatabs Fa) 1 tablet PO DAILY [facility] Last Admin: 12/19/19 10:31 Dose: 1 tablet Documented by: Senna/Docusate Sodium (Senokot-S, Cailin-Colace) 1 - 2 tablet PO DAILY PRN PRN PRN Reason: Constipation Simethicone (Mylicon) 80 mg PO PCHS PRN PRN Reason: Indigestion/Stomach pain Sodium Chloride () 5 - 15 ml IV UD PRN PRN Reason: SALINE FLUSH Last Admin: 12/18/19 22:37 Dose: 10 ml Documented by: Medical Necessity - Tobacco Use Smoking Status: Never smoker Assessment/Plan All Active Problems (Last Updated 12/18/19 @ 20:[address] Za Boo MD) (spontaneous vaginal delivery) (Acute) 39 weeks gestation of (Acute) Uterine contractions during (Acute) day 1 status post spontaneous vaginal delivery. Breast-feeding without difficulty. Pain well controlled on Tylenol and ibuprofen. Declines control at this time. Okay to PR home today
[2019-12-20 08:30] VITALS: BP 106/56; PULSE 74; RESP 16; TEMP 36.3; O2SAT 96
[2019-12-20] MEDS: Prenatal Vits Tablet 1 TABLET PO (10:42)
[2019-12-20 11:34] VITALS: RESP 18
== END 2019-12-20 11:30 | disposition home or self-care (01) | DRG 807 ==
LOC: WPOUT 10:57 → WP 10:57
PROVIDERS: Admitting Provider Obstetrics & Gynecology; Visit Provider Obstetrics & Gynecology
DX: O63.0 Prolonged first stage (of labor) (principal); Z37.0 Single live birth; O99.284 Endocrine, nutritional and metabolic diseases complicating childbirth; E03.9 Hypothyroidism, unspecified; O87.4 Varicose veins of lower extremity in the puerperium; Z3A.39 39 weeks gestation of pregnancy; Z90.49 Acquired absence of other specified parts of digestive tract; Z79.890 Hormone replacement therapy
CPT/HCPCS: 59025; 59050; 85025; 85461; 86850; 86900; 86901; 90384; 99218; J7120; A4216; G0378; J2790

== ENCOUNTER → 2023-01-23 | Outpatient (CLI) | payer OTHER, SELFPAY ==
[2023-01-27 17:07] LABS: HPV APTIMA, High Risk Negative (Negative)
== END | disposition home or self-care (01) ==
LOC: LABSPEC 14:14
PROVIDERS: Referring Provider Advanced Practice Midwife; Visit Provider Advanced Practice Midwife
DX: Z12.4 Encounter for screening for malignant neoplasm of cervix (principal)
CPT/HCPCS: 87624; 88175; G0145

== ENCOUNTER 2024-02-29 18:07 | Emergency (ER) | payer OTHER, SELFPAY ==
[2024-02-29 18:08] VITALS: BP 122/80; PULSE 81; RESP 16; TEMP 36.3; O2SAT 99; BMI 33.1
--- NOTE | 2024-02-29 19:15 | US_ITS ---
STUDY: ABDOMINAL ULTRASOUND - RIGHT UPPER QUADRANT REASON FOR VISIT: Female, 33 years old diffuse abdominal pain TECHNIQUE: Ultrasound evaluation of the right upper quadrant was performed with real-time and static hobbs-scale imaging. TECHNICAL QUALITY: Limited. Examination limited by bowel gas and patient was not nothing by mouth for 4 hours. COMPARISON: None. FINDINGS: Liver: The liver measures 17 cm. There is normal echogenicity of the liver. The bile ducts are within normal limits. There is hepatic color flow. The direction of portal flow is hepatopetal. There is no demonstrated mass lesion. Gallbladder: Distended gallbladder. The gallbladder wall measures 2 mm. There is a negative sonographic Muse''s sign. There is no pericholecystic fluid. There are no gallstones, there is a shadowing 4 mm polyp. Common Bile Duct (C.B.D.): The common bile duct measures 2 mm. Pancreas: Normal size of the head, body and tail of the pancreas. There is normal echogenicity of the pancreas. There is no demonstrated pancreatic mass or cyst. Right Kidney: Normal size of the right kidney. The right kidney measures 11.8 x 5.3 x 5.8 cm. Normal renal cortex. The right cortex measures 1.4 cm. There is no demonstrated renal mass or cyst. There is no right hydronephrosis. US/Gallbladder IMPRESSION: No sonographic evidence of acute gallbladder disease Nonshadowing gallbladder polyp Sonographically normal liver pancreas and right kidney Electronically Signed: Antwon Baptiste MD at 21:00 EST ,
[2024-02-29 19:26] LABS: Absolute Lymphocyte Count 2.42 X10^3/uL (0.83-4.51); Absolute Neutrophil Count 3.9 X10^3/uL (2.0-7.7); Basophil# 0.04 X10^3/uL; Basophil% 0.6 % (0-1); Eosinophil# 0.11 X10^3/uL; Eosinophils% 1.6 % (0-5); Hematocrit 40.9 % (37-47); Hemoglobin 13.8 g/dL (12.0-15.0); Lymphocyte # 2.42 X10^3/ul (0.83-4.51); Lymphocyte % 34.3 % (19-41); Mean Corp Hgb Conc 33.7 g/dL (32-36); Mean Corpuscular Hgb 28.8 pg (27.0-32.0); Mean Corpuscular Volume 85.2 fL (81-99); Mean Platelet Vol. 9.1 fl (6.2-12.0); Monocyte# 0.56 X10^3/uL; Monocyte% 7.9 % (0-10); NRBC Flagged by Analyzer 0 % (0-5); Neutrophil % 55.3 % (47-70); Platelet Count 263 K/mm3 (150-450); RBC Distribution Width CV 13.1 % (11.6-14.6); RBC Distribution Width SD 40.7 fl (35.1-43.9); White Blood Count 7.1 K/mm3 (4.4-11.0)
[2024-02-29 19:44] LABS: AST(SGOT) 33 U/L (15-37); Alanine Aminotransfer ALT/SGPT 63 U/L (13-56); Albumin, Serum 4.1 g/dL (3.2-5.0); Alkaline Phosphatase 64 U/L (45-117); Anion Gap 5 (5-15); BUN 10 mg/dL (7-18); BUN/Creat Ratio 14.9 RATIO (10-20); Bilirubin, Direct 0.08 mg/dL (0.00-0.30); Calcium,Total 9.8 mg/dL (8.5-10.1); Chloride 103 mmol/L (98-107); Creatinine, Serum 0.67 mg/dL (0.55-1.02); EST Glomerular Filtration Rate 109 mL/min (>60); Est Glom Filt Rate - Afr Amer 131 mL/min (>60); Estimated Creatinine Clearance 125.55 ml/min; Glucose 97 mg/dL (74-106); Lipase 31 U/L (13-75); Potassium 4.1 mmol/L (3.5-5.1); Protein, Total 8.1 g/dL (6.4-8.2); Sodium Level 138 mmol/L (136-145)
[2024-02-29] MEDS: Ondansetron 4 MG/2 ML Vial IV (19:46)
[2024-02-29 20:08] VITALS: BP 109/76; PULSE 70; RESP 16; O2SAT 99
--- NOTE | 2024-02-29 20:52 | EDS_ITS ---
HPI History of Present Illness Chief Complaint: Abd Pain Detail of Chief Complaint: Intermittent abdominal pain right upper quadrant for 8+ weeks Informant: patient Onset/Context/Timing Onset: Month(s) Context: Sudden Onset Timing: Intermittent Quality: Initially intermittent right upper quadrant constant past 48 hours Location: Right upper quadrant radiating to the intrascapular region Current Severity: Mild Maximum Severity: Moderate Worsened by: Nothing specific Relieved by: Nothing Associated Symptoms Associated Symptoms: Nausea Narrative Narrative: Patient is a 33-year-old Ab0 female whose last normal menstrual period was 2 weeks ago who presents with constant right upper quadrant pain for the past 48 hours and radiates to her back. There is a family history cholelithiasis. She denies intolerance to greasy or fried foods. She denies cardiac or respiratory symptoms. She denies dysuria, frequency, urgency or hematuria. There is no history of trauma direct or indirect. She has not noted a rash. She has not sought medical attention until this evening. She presently is nauseous. She has had no vomiting. She last ate at 1345. She had yogurt and a granola bar. Prior similar symptoms: Yes Recent Illness/Hospitalization: No PFSH PFSH Medical History Hypothyroidism Home Medications ?Medication ?Instructions ?Recorded ?Last Taken ?Type levothyroxine 150 mcg tablet 125 mcg PO DAILY hypothroid 05/22/17 12/18/19 09:00 History hydrocodone-acetaminophen 5-325mg 1 tab PO Q6H PRN PRN Pain 3 days 02/29/24 Unknown Rx 5mg-325mg #10 TABLETS Allergy/AdvReac Type Severity Reaction Status Date / Time acyclovir Allergy Rash Verified 02/29/24 18:10 Surgical History Hx of appendectomy Social History adopted: No household members: spouse and children housing: house number of children: 3 current occupational status: unemployed pets and animals: No history of recent travel: No sexually active: Yes Smoking Status: Never smoker alcohol intake: never substance use type: does not use caffeine: Yes Type: coffee Number of servings: 2 kassie/zoroastrianism: Zoroastrian additional social history: - Neymar ROS ROS ED Constitutional Constitutional ED: Denies chills, fever(s), subjective or sweats ENT ENT ED: Denies rhinorrhea or sore throat Cardiovascular Cardiovascular: Denies chest pain, orthopnea, palpitations, paroxysmal nocturnal dyspnea or racing heartbeat Respiratory/Chest Respiratory/Chest: Denies cough, dyspnea, dyspnea on exertion, orthopnea or paroxysmal nocturnal dyspnea Gastrointestinal Gastrointestinal: Reports abdominal pain and nausea; Denies constipation, diarrhea, melena or vomiting Genitourinary Genitourinary ED: Denies dysuria, hematuria or urinary frequency Musculoskeletal Musculoskeletal: Denies arthralgias, back pain or myalgias Integumentary Denies rash Neurologic Neurologic: Denies headache(s) or paresthesias Endocrine Endocrinology: Denies cold intolerance or heat intolerance Hematologic/Lymphatic Hematologic/Lymphatic: Reports systems reviewed and no addt'l complaints, except as documented EXAM Physical Exam Const Vital Signs: 02/29/24 18:08 02/29/24 20:08 Temperature 97.3 F L Temperature Source Temporal Pulse Rate 81 70 Respiratory Rate 16 16 Blood Pressure 122/80 H 109/76 Blood Pressure Mean 94 87 Pulse Ox 99 99 Oxygen Delivery Method Room Air Room Air Positive well nourished and well developed Constitutional Narrative: Patient appears slightly uncomfortable. BMI is 33.1 General Appearance ED: well developed; Negative for cyanotic, diaphoretic, NAD or pallor HEENT Reports moist mucous membranes HEENT Narrative: Head is atraumatic normocephalic. Patient wears corrective lenses Eyes PERRL and EOMs intact bilaterally General Eye ED: Negative for pale conjunctiva or scleral icterus Neck no lymphadenopathy, supple and no JVD Resp normal respiratory effort and clear to auscultation bilaterally Cardio regular rate, regular rhythm, S1 normal heart sound, S2 normal heart sound and no murmurs GI non-distended and no masses; Negative for non-tender or hepatosplenomegaly Inspection: Negative for abdominal distention Auscultation: hypoactive bowel sounds Palpation: soft and tender RUQ and Muse's sign; Negative for rebound tenderness present Back/Spine no CVA tenderness Back/Spine Narrative: Inspection of the back is normal. Extremity normal to inspection General Extremety ED: Negative for edema or tenderness General Extremity: Negative for edema Neuro oriented x3 and CN's II-XII intact bilaterally Sensorium / Orientation: alert Psych mental status grossly normal Skin no rashes or lesions noted, no wounds and skin turgor normal General Skin Exam: elasticity normal; Negative for jaundice or pallor [facility] MDM Narrative Medical decision making narrative: Differential diagnoses abdominal pain unknown etiology, biliary colic, cholelithiasis, cholecystitis, atypical presentation for obstructing ureteral stone appropriate blood work was undertaken which include CBC, hepatic, BMP and lipase. Laboratory results are unremarkable with exception of ALT is slightly elevated 63. Lab Data Attestation: I reviewed the patient's lab results. Lab results narrative: Documented under the MDM narrative portion. Labs: Laboratory Results - last 24 hr 02/29/24 19:17 WBC 7.1 RBC 4.80 Hgb 13.8 Hct 40.9 MCV 85.2 MCH 28.8 MCHC 33.7 RDW Std Deviation 40.7 RDW Coeff of Daisy 13.1 Plt Count 263 MPV 9.1 Immature Gran % (Auto) 0.300 Neut % (Auto) 55.3 Lymph % (Auto) 34.3 White % (Auto) 7.9 Eos % (Auto) 1.6 Baso % (Auto) 0.6 Absolute Neuts (auto) 3.9 Absolute Lymphs (auto) 2.42 Nucleated RBC % 0 Sodium 138 Potassium 4.1 Chloride 103 Carbon Dioxide 30.0 Anion Gap 5 BUN 10 Creatinine 0.67 Estim Creat Clear Calc 125.55 Est GFR (MDRD) Af Amer 131 Est GFR (MDRD) Non-Af 109 BUN/Creatinine Ratio 14.9 Glucose 97 Calcium 9.8 Total Bilirubin 0.30 Direct Bilirubin 0.08 AST 33 ALT 63 H Alkaline Phosphatase 64 Total Protein 8.1 Albumin 4.1 Globulin 4.0 Lipase 31 Radiography Diagnostic Testing: Clinical Impression(s) from Imaging Studies Gallbladder Ultrasound 02/29/24 19:15 IMPRESSION: No sonographic evidence of acute gallbladder disease Nonshadowing gallbladder polyp Sonographically normal liver pancreas and right kidney Electronically Signed: Antwon Baptiste MD at 21:00 EST , Treatment and Re-Evaluation :: Patient and her reported that all her tests are essentially normal. Ultrasound did not really abnormality other than a polyp which is inconsequential. They were instructed to follow-up with their physician Dr. Jackson. She will need an outpatient HIDA scan to further evaluate her right upper quadrant pain. She was discharged with pain medicine. Discharge Plan Triage Chief Complaint: Abd Pain ED Provider: Andrés Cuenca Dx/Rx/DC Orders Clinical Impression: Right upper quadrant abdominal pain of unknown etiology, Hypothyroidism Instructions: ED Abdominal Pain Unkn Cause Fem Prescriptions: New hydrocodone-acetaminophen 5-325 mg tablet 1 tab PO Q6H PRN PRN (Reason: Pain) 3 Days Qty: 10 0RF No Action levothyroxine 150 MCG tablet 125 mcg PO DAILY Primary Care Provider: Daphne Cameron Referrals: Daphne Cameron MD [Primary Care Provider] - 3-5 Days Activity Restrictions/Additional Instructions: 1. I would avoid greasy or fried foods 2. Follow-up with your doctor or doctors office to schedule outpatient HIDA scan Print Language: Urdu Disposition Disposition: Home, Self Care
[2024-02-29 22:00] VITALS: BP 107/64; PULSE 77; RESP 16; O2SAT 97
[2024-02-29 22:16] VITALS: BP 107/64; PULSE 77; RESP 16; TEMP 36.9; O2SAT 97
== END 2024-02-29 22:18 | disposition home or self-care (01) ==
PROVIDERS: Emergency Provider Emergency Medicine; PCP Student in an Organized Health Care Education/Training Program; Referring Provider Emergency Medicine; Visit Provider Emergency Medicine
DX: R10.11 Right upper quadrant pain (principal); R11.0 Nausea; R74.01 Elevation of levels of liver transaminase levels; K82.4 Cholesterolosis of gallbladder; E03.9 Hypothyroidism, unspecified; Z90.49 Acquired absence of other specified parts of digestive tract; Z83.79 Family history of other diseases of the digestive system; Z79.890 Hormone replacement therapy
CPT/HCPCS: 76705; 80048; 80076; 83690; 85025; 96374; 99282; A4216; J2405

== ENCOUNTER → 2024-12-19 | Outpatient (CLI) | payer OTHER, SELFPAY ==
[2024-12-19 12:28] LABS: Hematocrit 32.5 % (37-47); Hemoglobin 11.2 g/dL (12.0-15.0); Immature Granulocytes Count 0.030 X10^3/uL (0.0-0.0); Mean Corp Hgb Conc 34.5 g/dL (32-36); Mean Corpuscular Volume 84.2 fL (81-99); Mean Platelet Vol. 9.4 fl (6.2-12.0); NRBC Flagged by Analyzer 0 % (0-5); Platelet Count 254 K/mm3 (150-450); RBC Distribution Width CV 14.6 % (11.6-14.6); RBC Distribution Width SD 45.0 fl (35.1-43.9); Red Blood Count 3.86 M/mm3 (4.2-5.4); White Blood Count 7.4 K/mm3 (4.4-11.0)
[2024-12-19 13:35] LABS: HIV Nonreactive (Nonreactive); Hepatitis B Surface Antigen Nonreactive (Nonreactive); Hepatitis C Antibody Nonreactive (Nonreactive); Syphilis Antibodies Nonreactive (Nonreactive)
[2024-12-23 21:07] LABS: Chlamydia By Nucleic Acid AMP Negative (Negative); Gonococcus By Nucleic Acid AMP Negative (Negative)
== END | disposition home or self-care (01) ==
PROVIDERS: PCP Student in an Organized Health Care Education/Training Program; Visit Provider Obstetrics & Gynecology
DX: O09.90 Supervision of high risk pregnancy, unspecified, unspecified trimester (principal); O99.280 Endocrine, nutritional and metabolic diseases complicating pregnancy, unspecified trimester; E03.9 Hypothyroidism, unspecified; Z3A.00 Weeks of gestation of pregnancy not specified
CPT/HCPCS: 36415; 84439; 84443; 85025; 86703; 86762; 86780; 86803; 86850; 86900; 86901; 87086; 87088; 87340; 87491; 87591

== ENCOUNTER → 2025-02-06 | Outpatient (CLI) | payer SELFPAY, OTHER | END | disposition home or self-care (01) | PROVIDERS: PCP Student in an Organized Health Care Education/Training Program; Referring Provider Obstetrics & Gynecology; Visit Provider Obstetrics & Gynecology | DX: O09.92 Supervision of high risk pregnancy, unspecified, second trimester (principal); Z3A.20 20 weeks gestation of pregnancy | CPT/HCPCS: 76805; 76817 ==

== ENCOUNTER → 2025-02-13 | Outpatient (CLI) | payer OTHER, SELFPAY | END | disposition home or self-care (01) | PROVIDERS: Internal Medicine Endocrinology, Diabetes & Metabolism; PCP Student in an Organized Health Care Education/Training Program; Visit Provider Obstetrics & Gynecology | DX: O28.3 Abnormal ultrasonic finding on antenatal screening of mother (principal); O99.280 Endocrine, nutritional and metabolic diseases complicating pregnancy, unspecified trimester; E03.9 Hypothyroidism, unspecified; Z3A.00 Weeks of gestation of pregnancy not specified | CPT/HCPCS: 36415; 84443 ==

== ENCOUNTER 2025-03-19 10:56 | Emergency (ER) | payer OTHER, SELFPAY ==
[2025-03-19 10:57] VITALS: BP 114/78; PULSE 84; RESP 16; TEMP 35.8; O2SAT 100; BMI 34.9
--- NOTE | 2025-03-19 11:21 | VDLE_ITS ---
Reason For Study Reason For Study: Left groin pain RIGHT LEFT CFV is compressible, spontaneous, phasic, competent GSV is normal. and demonstrates normal augmentation. CFV is compressible, spontaneous, phasic, competent, Procedure and demonstrates normal augmentation. This is a venous duplex using B-mode, color flow and FV is compressible, spontaneous, phasic, competent spectral Doppler. and demonstrates normal augmentation. Exam performed portable in ED. POP V is compressible, spontaneous, phasic, competent A preliminary report was called and/or faxed to [facility] and demonstrates normal augmentation. RN. T/P Trunk is compressible. PTV is compressible. LT PerV is compressible. Thrombus filled varicose veins noted in the left groin. VL/Venous Duplex US, Unilateral Interpretation Summary Deep veins of the left lower extremity are patent and compressible segmentally. There is no evidence of left lower extremity deep vein thrombosis. Valvular competence appears intact within the p roximal deep venous system on the left . The left great saphenous vein appears patent and compressible segmentally. Acut e superficial thrombophlebitis is noted involving varicosities in the left groin. The right common femoral vein is mosley nt and compressible . Ordering Physician: Reynold Bella Referring Physician: Daphne Cameron Performed By: Cristal Cobb RVT
--- NOTE | 2025-03-19 11:23 | EX.ED.DYSGE1 ---
HPI History of Present Illness Chief Complaint: Other, Pain/Inj Detail of Chief Complaint: Left leg pain and swelling Informant: patient and spouse/S.O. Narrative Narrative: Patient presents to the emergency department with complaint of area of redness and swelling to the left upper thigh. Symptoms for several days. She has history of varicose veins. She is also 26 weeks . No history of DVT. She denies chest pain or shortness of breath. She denies recent travel or surgery. Patient concern for DVT. She denies fevers. PFSH PFSH Home Medications ?Medication ?Instructions ?Recorded ?Last Taken ?Type levothyroxine 125 mcg tablet 125 mcg PO .daily, 2 on Sundays01/23/25 Unknown Rx (Unithroid) #100 tabs Allergy/AdvReac Type Severity Reaction Status Date / Time acyclovir Allergy Rash Verified 03/19/25 10:57 Family History Mother Thyroid disorder Sister Thyroid disorder Sister Thyroid disorder Surgical History Hx of appendectomy Social History adopted: No household members: spouse and children housing: house number of children: 3 current occupation: [employer] [address] current occupational exposures/hazards: No pets and animals: No history of recent travel: No sexually active: Yes Smoking Status: Never smoker second hand exposure: No alcohol intake: never substance use type: does not use well-balanced diet: daily or most days caffeine: Yes Type: coffee Number of servings: 1 eating out: 1-3 times/week during the past year weight has: decreased > 10 lbs what type of physical activity do you participate in: none kassie/church: [facility] seatbelt use: sometimes do you feel safe at home: Yes additional social history: : Neymar Dow PER[place] ROS ED Review of Systems ROS Unobtainable: other Constitutional Constitutional ED: Reports lethargy; Denies chills, fever(s), sweats or weight loss Eyes Eyes: Denies blurry vision, change in vision or diplopia ENT ENT ED: Denies rhinorrhea or sore throat Cardiovascular Cardiovascular: Denies chest pain, orthopnea or racing heartbeat Respiratory/Chest Respiratory/Chest: Denies cough, dyspnea, dyspnea on exertion, orthopnea or sputum Gastrointestinal Gastrointestinal: Denies abdominal pain, diarrhea, nausea or vomiting Genitourinary Genitourinary ED: Denies dysuria, hematuria or urinary frequency Musculoskeletal Musculoskeletal: Reports other Details: Left upper thigh pain, redness, swelling ; Denies arthralgias, back pain, myalgias or neck pain Integumentary Denies abscess, Abrasions or rash Neurologic Neurologic: Denies headache(s) or weakness Psychiatric Psychiatric: Denies anxiety, depression or suicidal thoughts Endocrine Endocrinology: Denies polydipsia, polyphagia or polyuria Hematologic/Lymphatic Hematologic/Lymphatic: Denies easy bleeding, easy bruising or lymphadenopathy Allergic/Immunologic Allergic/Immunologic ED: Denies mouth swelling, tongue swelling or urticaria EXAM Physical Exam Const Vital Signs: 03/19/25 10:57 Temperature 96.5 F L Temperature Source Temporal Pulse Rate 84 Respiratory Rate 16 Blood Pressure 114/78 Blood Pressure Mean 90 Pulse Ox 100 Positive well nourished and well developed General Appearance ED: well developed and NAD HEENT Reports TM's clear and moist mucous membranes normocephalic and atraumatic; Negative for trauma or tenderness Tympanic Membrane ED: Yes TM's clear Eyes PERRL and EOMs intact bilaterally General Eye ED: Negative for pale conjunctiva or scleral icterus Neck no lymphadenopathy, supple and no JVD General: Negative for tenderness Chest Wall inspection of chest normal and palpation of chest normal Chest: Negative for tenderness Resp normal respiratory effort and clear to auscultation bilaterally Effort and Inspection: Negative for respiratory distress or pain with movement Auscultation: Negative for rhonchi, wheezes or diminished lung sounds Cardio regular rate, regular rhythm, S1 normal heart sound, S2 normal heart sound and no murmurs Peripheral Pulses: pulses 2+ throughout GI normal to inspection, nondistended, normoactive bowel sounds, soft to palpation, non-tender, non-distended and no masses Back/Spine no CVA tenderness and no thoracic nor lumbar tenderness Extremity Extremity Narrative: Left upper thigh-patient has just distal to her groin area of varicosity. There is no cellulitic change. There is no fluctuance or abscess noted. Slightly tender to palpation. Appears to be relatively superficial. Patient also has distal lower extremity varicose veins. Varicosities are bilateral. No cellulitic changes. General Extremety ED: Negative for edema General Extremity: Negative for edema Neuro oriented x3, CN's II-XII intact bilaterally, no sensory deficits noted and gait normal Sensorium / Orientation: awake, alert, oriented to person, oriented to place and oriented to time Motor Exam: strength 5/5 throughout and strength abnormal Psych mental status grossly normal Skin no rashes or lesions noted and no wounds MDM MDM MDM Narrative Medical decision making narrative: Patient presents with concern to left upper thigh for possible DVT. Will obtain a venous Doppler to rule out DVT. It is possible what you are saying is superficial thrombophlebitis. Venous Doppler of the left lower extremity showed thrombus filled varicose vein noted in the left groin. There was no evidence of DVT. Discussed results with patient and recommended warm compresses to the area. She is nearing her third trimester therefore I do not think NSAIDs are indicated. She is to take Tylenol for discomfort. She will be referred to vascular for follow-up. Discharge Plan Triage Chief Complaint: Other, Pain/Inj ED Provider: Reynold Bella Dx/Rx/DC Orders Clinical Impression: Superficial thrombophlebitis Instructions: ED Thrombophlebitis, Superficial Prescriptions: No Action levothyroxine [Unithroid] 125 mcg tablet 125 mcg PO .daily, 2 on Sundays Qty: 100 3RF Primary Care Provider: Daphne Cameron Referrals: Santhosh De La Rosa MD [Med Staff - Active Staff, Vascular Surgery] - 5-7 Days Daphne Cameron MD [Primary Care Provider, Family Practice] Print Language: Mosotho Disposition Disposition: Home, Self Care
[2025-03-19 12:09] VITALS: BP 109/67; PULSE 81; RESP 16; TEMP 36.7; O2SAT 100
== END 2025-03-19 12:10 | disposition home or self-care (01) ==
PROVIDERS: Emergency Provider Emergency Medicine; PCP Student in an Organized Health Care Education/Training Program; Visit Provider Emergency Medicine
DX: O22.22 Superficial thrombophlebitis in pregnancy, second trimester (principal); I80.02 Phlebitis and thrombophlebitis of superficial vessels of left lower extremity; Z3A.26 26 weeks gestation of pregnancy
CPT/HCPCS: 93971; 99282

== ENCOUNTER → 2025-04-04 | Outpatient (CLI) | payer OTHER, SELFPAY ==
[2025-04-04 16:46] LABS: Hematocrit 31.6 % (37-47); Hemoglobin 10.6 g/dL (12.0-15.0); Immature Granulocytes Count 0.060 X10^3/uL (0.0-0.0); Mean Corp Hgb Conc 33.5 g/dL (32-36); Mean Corpuscular Volume 87.8 fL (81-99); Mean Platelet Vol. 9.4 fl (6.2-12.0); NRBC Flagged by Analyzer 0 % (0-5); Platelet Count 256 K/mm3 (150-450); RBC Distribution Width CV 13.2 % (11.6-14.6); RBC Distribution Width SD 42.5 fl (35.1-43.9); Red Blood Count 3.60 M/mm3 (4.2-5.4); White Blood Count 9.3 K/mm3 (4.4-11.0)
[2025-04-04 17:57] LABS: Glucose Challenge Gest 1H 50g 110 mg/dL (70-140); HIV Nonreactive (Nonreactive); Syphilis Antibodies Nonreactive (Nonreactive)
== END | disposition home or self-care (01) ==
LOC: BWCLAB 14:17
PROVIDERS: PCP Student in an Organized Health Care Education/Training Program; Visit Provider Obstetrics & Gynecology
DX: O09.92 Supervision of high risk pregnancy, unspecified, second trimester (principal); O99.282 Endocrine, nutritional and metabolic diseases complicating pregnancy, second trimester; E03.9 Hypothyroidism, unspecified; O26.892 Other specified pregnancy related conditions, second trimester; Z67.91 Unspecified blood type, Rh negative; Z13.1 Encounter for screening for diabetes mellitus; Z3A.00 Weeks of gestation of pregnancy not specified
CPT/HCPCS: 36415; 82950; 84439; 85025; 86703; 86780; 86850; 86900; 86901